=== PATIENT | female | born 2000 | race Caucasian/White ===

== ENCOUNTER → 2023-09-26 | Emergency (ER) | payer OTHER ==
--- NOTE | 2023-09-26 13:44 | EDPHYS ---
Physician Documentation [facility] Name: Flora Pantoja Age: 23 yrs Sex: Female : 2000 Arrival Date: 09/26/2023 Time: 13:13 Bed IW2 Private MD: Adrian Feliciano ED Physician Justin Puckett HPI: 09/26 17:26 This 23 yrs old Female presents to ER via Ambulatory with complaints of Work Note. rt 17:26 Patient presents to the ED requesting a work note, 3 days ago, she had nausea, vomiting rt after eating a greasy meal. The patient states that she is back to normal now. Denies any nausea, abdominal pain. Denies other acute complaints, symptoms are moderate severity, no other aggravating or alleviating factors.. Historical: - Allergies: 13:44 No Known Allergies; ph - PMHx: :44 Anxiety; ph - Immunization history:: Adult Immunizations unknown. - Social history:: Smoking status: Patient denies any tobacco usage or history of. - Family history:: not pertinent. ROS: 17:26 Constitutional: Negative for fever, chills, and weight loss, Cardiovascular: Negative rt for chest pain, palpitations, and edema, Respiratory: Negative for shortness of breath, cough, wheezing, and pleuritic chest pain, MS/Extremity: Negative for injury and deformity, Skin: Negative for injury, rash, and discoloration, Neuro: Negative for headache, weakness, numbness, tingling, and seizure, Psych: Negative for depression, anxiety, suicide ideation, homicidal ideation, and hallucinations, 17:26 Abdomen/GI: Positive for nausea and vomiting, Negative for abdominal pain, Exam: 17:26 Constitutional: This is a well developed, well nourished patient who is awake, alert, rt and in no acute distress. Head/Face: Normocephalic, atraumatic. Chest/axilla: Normal chest wall appearance and motion. Nontender with no deformity. No lesions are appreciated. Cardiovascular: Regular rate and rhythm with a normal S1 and S2. No gallops, murmurs, or rubs. Normal PMI, no JVD. No pulse deficits. Respiratory: Lungs have equal breath sounds bilaterally, clear to auscultation and percussion. No rales, rhonchi or wheezes noted. No increased work of breathing, no retractions or nasal flaring. Abdomen/GI: Soft, non-tender, with normal bowel sounds. No distension or tympany. No guarding or rebound. No evidence of tenderness throughout. Skin: Warm, dry with normal turgor. Normal color with no rashes, no lesions, and no evidence of cellulitis. MS/ Extremity: Pulses equal, no cyanosis. Neurovascular intact. Full, normal range of motion. Neuro: Awake and alert, GCS 15, oriented to person, place, time, and situation. Cranial nerves II-XII grossly intact. Motor strength 5/5 in all extremities. Sensory grossly intact. Cerebellar exam normal. Normal gait. Psych: Awake, alert, with orientation to person, place and time. Behavior, mood, and affect are within normal limits. Vital Signs: 13:42 BP 127 / 84; Pulse 87; Resp 18; Temp 98.1; Pulse Ox 100% on R/A; Weight 90.72 kg; ph Height 5 ft. 2 in. ; 13:42 Body Mass Index 36.58 (90.72 kg, 157.48 cm) ph MDM: 13:40 Patient medically screened. rt 17:26 Differential Diagnosis Nausea, vomiting, gastroenteritis. Data reviewed: vital signs, rt nurses notes. Test considered but Not performed: Other Details Symptoms resolved, benign abdominal examination, CT, labs not indicated.. 17:26 Counseling: I had a detailed discussion with the patient and/or guardian regarding the rt historical points, exam findings, and any diagnostic results supporting the discharge/admit diagnosis, the need for outpatient follow up, to return to the emergency department if symptoms worsen or persist or if there are any questions or concerns that arise at home. Administered Medications: No medications were administered Disposition Summary: 09/26/23 13:44 Discharge Ordered Notes: Location: Home rt Problem: new rt Symptoms: are resolved rt Condition: Stable rt Diagnosis - Vomiting rt Followup: rt - With: Adrian Feliciano - When: 2 - 3 days - Reason: Discharge Instructions: - Discharge Summary Sheet rt - Vomiting, Adult rt Forms: - Work release form rt - Medication Reconciliation Form rt - Thank You Letter rt - Antibiotic Education rt - Prescription Opioid Use rt - Patient Portal Instructions rt - Leadership Thank You Letter rt Signatures: Little Davila RN RN ph Justin Puckett MD MD rt Corrections: (The following items were deleted from the chart) 13:44 13:44 PMHx: None; ph ph
--- NOTE | 2023-09-26 13:44 | ER ---
Nurse's Notes [facility] Name: Flora Pantoja Age: 23 yrs Sex: Female : 2000 Arrival Date: 09/26/2023 Time: 13:13 Bed IW2 Private MD: Adrian Feliciano Diagnosis: Vomiting Presentation: 09/26 13:42 Chief complaint: Patient states: N/V that started Tuesday night after eating fast ph food, believes she had food poisoning, missed work on Tuesday and needs a work note. Symptoms have resolved. Coronavirus screen: Vaccine status: Patient reports being unvaccinated. Ebola Screen: No symptoms or risks identified at this time. Initial Sepsis Screen: Does the patient meet any 2 criteria? No. Patient's initial sepsis screen is negative. Does the patient have a suspected source of infection? No. Patient's initial sepsis screen is negative. Risk Assessment: Do you want to hurt yourself or someone else? Patient reports no desire to harm self or others. Onset of symptoms was September 26, 2023. 13:42 Method Of Arrival: Ambulatory ph 13:42 Acuity: JUNITO 5 ph Triage Assessment: 13:44 General: Appears in no apparent distress. comfortable, Behavior is calm, cooperative. ph Pain: Denies pain. Neuro: Level of Consciousness is awake, alert, obeys commands, Oriented to person, place, time, situation. GI:. Historical: - Allergies: 13:44 No Known Allergies; ph - PMHx: 13:44 Anxiety; ph - Immunization history:: Adult Immunizations unknown. - Social history:: Smoking status: Patient denies any tobacco usage or history of. - Family history:: not pertinent. Vital Signs: 13:42 BP 127 / 84; Pulse 87; Resp 18; Temp 98.1; Pulse Ox 100% on R/A; Weight 90.72 kg; ph Height 5 ft. 2 in. ; 13:42 Body Mass Index 36.58 (90.72 kg, 157.48 cm) ph ED Course: :19 Patient arrived in ED. mr 13:20 Adrian Feliciano is Private Physician. mr 13:21 Justin Puckett MD is Attending Physician. rt 13:44 Triage completed. ph 13:44 Adrian Feliciano is Referral Physician. rt 13:44 Arm band placed on Patient placed in waiting room, Patient notified of wait time. ph 13:57 Little Davila, RN is Primary Nurse. ph Administered Medications: No medications were administered Outcome: :44 Discharge ordered by . rt 13:58 Patient left the ED. ph Signatures: Anahy Solano, Reg Reg mr Little Davila RN RN ph Justin Puckett MD MD rt Corrections: (The following items were deleted from the chart) :44 13:44 PMHx: None; ph ph
[2023-09-26 14:16] VITALS: BP 127/84; TEMP 98.1; O2SAT 100
== END ==
LOC: ER 13:13
DX: Z02.79 Encounter for issue of other medical certificate (principal); R11.10 Vomiting, unspecified
CPT/HCPCS: 99281

== ENCOUNTER 2023-12-09 21:56 | Emergency (ER) | payer OTHER ==
[2023-12-10 00:25] LABS: Specific Gravity > 1.030 (1.005-1.030)
[2023-12-10 00:27] LABS: Specific Gravity > 1.030 (1.005-1.030); Urine Bacteria <20 /HPF (<20); Urine Bilirubin NEGATIVE (Negative); Urine Blood Trace (Negative); Urine Clarity Extremely Turbid (Clear); Urine Color Yellow (Yellow); Urine Culture Reflex Order NOT NEEDED; Urine Glucose NEGATIVE (Negative); Urine Ketones TRACE (Negative); Urine Microscopic Reflex YN ORDER UMIC; Urine Mucus 4+ /HPF (None Seen); Urine Nitrite NEGATIVE (Negative); Urine Protein 1+ (Negative); Urine RBC <5 /HPF (None Seen); Urine Urobilinogen Normal (Normal); Urine WBC <5 /HPF (<5); Urine pH 5.5 (5.0-7.0)
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
[2023-12-10] MEDS ORDERED: CEFTRIAXONE 500 MG/VIAL ONE (02:12)
[2023-12-10] MEDS ORDERED: AZITHROMYCIN 250 MG TAB ONE (02:12)
[2023-12-10] MEDS ORDERED: ONDANSETRON 4 MG (ODT) TAB ONE (02:13)
[2023-12-10] MEDS ORDERED: LIDOCAINE 1% MPF 2 ML AMPULE ONE (02:13)
[2023-12-10] MEDS ORDERED: metroNIDAZOLE 500 MG TABLET ONE (02:13)
[2023-12-10 15:01] VITALS: BP 117/74; TEMP 98.6; O2SAT 99
== END 2023-12-10 02:34 | disposition home or self-care (01) ==
LOC: ER 21:56
DX: Z04.41 Encounter for examination and observation following alleged adult rape (principal)
CPT/HCPCS: 81001; 81025; 96372; 99284; Q0162

== ENCOUNTER 2024-04-02 19:40 | Emergency (ER) | payer OTHER ==
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
--- NOTE | 2024-04-02 21:09 | ER ---
Nurse's Notes [facility] Name: Flora Pantoja Age: 24 yrs Sex: Female : 2000 Arrival Date: 04/02/2024 Time: 19:40 Bed DX3 Private MD: Diagnosis: Pain in right wrist Presentation: 04/02 19:55 Chief complaint: Patient states: R wrist pain x 3 weeks after missing step and falling. ss Pt denies pain while wrist is still, but is painful with movement. Coronavirus screen: Client denies travel out of the [place] in the last 14 days. Ebola Screen: Patient denies exposure to infectious person. Patient denies travel to an Ebola-affected area in the 21 days before illness onset. Initial Sepsis Screen: Does the patient meet any 2 criteria? No. Patient's initial sepsis screen is negative. Does the patient have a suspected source of infection? No. Patient's initial sepsis screen is negative. Risk Assessment: Do you want to hurt yourself or someone else? Patient reports no desire to harm self or others. Onset of symptoms was March 12, 2024. 19:55 Method Of Arrival: Ambulatory ss 19:55 Acuity: JUNITO 4 ss Triage Assessment: 19:58 General: Appears in no apparent distress. comfortable, Behavior is calm, cooperative. ss Pain: Complains of pain in R wrist Pain currently is 6 out of 10 on a pain scale. Neuro: Level of Consciousness is awake, alert, obeys commands. Respiratory: Airway is patent Respiratory effort is even, unlabored. Historical: - Allergies: 19:57 No Known Allergies; ss - PMHx: 19:57 Anxiety; ss - Social history:: Smoking status: Reported history of juuling and/or vaping. Assessment: 21:28 General: Appears in no apparent distress. comfortable, Behavior is calm, cooperative. ss Neuro: Level of Consciousness is awake, alert, obeys commands. Respiratory: Airway is patent Respiratory effort is even, unlabored, Respiratory pattern is regular, symmetrical. Vital Signs: 19:55 BP 133 / 86; Pulse 71; Resp 15; Temp 98.3(TE); Pulse Ox 100% on R/A; Height 5 ft. 2 in. ss ; Pain 0/10; 19:55 Pain Scale: Adult ss ED Course: 19:45 Patient arrived in ED. 2 19:45 Najma Michel FNP-C is [facility]. kb 19:45 Kolton Leggett MD is Attending Physician. kb 19:57 Triage completed. ss 19:57 Arm band placed on left wrist. ss 20:50 Wrist Right 3 View XRAY In Process Unspecified. EDMS 21:27 Kadie Cleveland, RN is Primary Nurse. ss 21:27 No provider procedures requiring assistance completed. Patient did not have IV access ss during this emergency room visit. Willy wrap to right wrist. 21:28 Patient has correct armband on for positive identification. ss Administered Medications: No medications were administered Outcome: 21:08 Discharge ordered by MD. kb 21:45 Discharged to home ambulatory, with family, ss 21:45 Condition: good 21:45 Discharge instructions given to patient, Instructed on discharge instructions, follow up and referral plans. Demonstrated understanding of instructions, follow-up care, 21:45 Patient left the ED. ss Signatures: Dispatcher [employer] EDMS Najma Michel FNP-C COLOR ADVISER-Ckb Kadie Cleveland RN RN Rosanne Glynn gm2 Corrections: (The following items were deleted from the chart) 19:59 19:55 Acuity: JUNITO 3 ss ss
--- NOTE | 2024-04-02 21:09 | EDPHYS ---
Physician Documentation [facility] Name: Flora Pantoja Age: 24 yrs Sex: Female : 2000 Arrival Date: 04/02/2024 Time: 19:40 Bed DX3 Private MD: ED Physician Kolton Leggett HPI: 04/02 20:50 This 24 yrs old Female presents to ER via Ambulatory with complaints of Wrist Injury, kb Wrist Pain. 20:50 Pt is a 24 year old female who presents for right wrist pain that started 3 weeks ago kb after a fall. States she only has pain when she with some movements, but it isnt' getting better. Historical: - Allergies: 19:57 No Known Allergies; ss - PMHx: 19:57 Anxiety; ss - Social history:: Smoking status: Reported history of juuling and/or vaping. ROS: 20:50 Constitutional: As per HPI kb Exam: 20:50 Constitutional: This is a well developed, well nourished patient who is awake, alert, kb and in no acute distress. Head/Face: Normocephalic, atraumatic. ENT: Moist Mucous membranes Cardiovascular: Regular rate Respiratory: Respirations even and unlabored. No increased work of breathing. Talking in full sentences Abdomen/GI: Soft, non-tender. No distention Skin: Warm, dry with normal turgor. Normal color. MS/ Extremity: Pulses equal, no cyanosis. Neurovascular intact. Full, normal range of motion. Neuro: Awake and alert, GCS 15, oriented to person, place, time, and situation. Moves all extremities. Normal gait. Vital Signs: 19:55 BP 133 / 86; Pulse 71; Resp 15; Temp 98.3(TE); Pulse Ox 100% on R/A; Height 5 ft. 2 in. ss ; Pain 0/10; 19:55 Pain Scale: Adult ss MDM: 19:46 Patient medically screened. kb 20:52 Differential diagnosis: closed fracture, contusion, sprain. Data reviewed: vital signs, kb nurses notes. 21:07 Counseling: I had a detailed discussion with the patient and/or guardian regarding the kb historical points, exam findings, and any diagnostic results supporting the discharge/admit diagnosis, radiology results, the need for outpatient follow up, a orthopedic surgeon, to return to the emergency department if symptoms worsen or persist or if there are any questions or concerns that arise at home. 04/02 19:58 Order name: Wrist Right 3 View XRAY; Complete Time: 21:07 kb 04/02 21:08 Order name: Willy Wrap; Complete Time: 21:27 kb Administered Medications: No medications were administered Disposition Summary: 04/02/24 21:08 Discharge Ordered Notes: Location: Home kb Condition: Stable kb Diagnosis - Pain in right wrist kb Followup: kb - With: Emergency Department - When: As needed - Reason: Worsening of condition Followup: kb - With: Private Physician - When: 2 - 3 days - Reason: Recheck today's complaints, Continuance of care, Re-evaluation by your physician Discharge Instructions: - Discharge Summary Sheet kb - Wrist Pain, Adult, [id number] kb Forms: - Medication Reconciliation Form kb - Antibiotic Education kb - Prescription Opioid Use kb - Patient Portal Instructions kb - Leadership Thank You Letter kb Signatures: Dispatcher [employer] Najma Mora, SNOWBOARD DESIGNER-C SNOWBOARD DESIGNER-Kadie Villa, RN RN ss
[2024-04-02 22:03] VITALS: BP 133/86; TEMP 98.3; O2SAT 100
== END 2024-04-02 21:45 | disposition home or self-care (01) ==
LOC: ER 19:40
DX: M25.531 Pain in right wrist (principal)
CPT/HCPCS: 99283